=== PATIENT | male | born 1975 | race Hispanic/Latino ===

== ENCOUNTER 2022-07-24 08:11 | Emergency (ER) | payer SELFPAY ==
[2022-07-24] MEDS ORDERED: Ketorolac Tromethamine 30 MG/ML VIAL ONE (08:30)
== END 2022-07-24 08:57 | disposition home or self-care (01) ==
LOC: ERS 08:11
DX: M79.672 Pain in left foot (principal)
CPT/HCPCS: 96372; 99282; J1885

== ENCOUNTER 2023-10-19 11:09 | Emergency (ER) | payer SELFPAY | END 2023-10-19 11:35 | disposition home or self-care (01) | LOC: ERS 11:09 | DX: S41.111D Laceration without foreign body of right upper arm, subsequent encounter (principal); X58.XXXD Exposure to other specified factors, subsequent encounter ==

== ENCOUNTER 2025-01-21 13:38 | Emergency (ER) | payer SELFPAY ==
[2025-01-21] MEDS ORDERED: Ketorolac Tromethamine 30 MG (1 mL) VIAL ONE (14:43)
== END 2025-01-21 15:54 | disposition home or self-care (01) ==
LOC: ERS 13:38
DX: M77.12 Lateral epicondylitis, left elbow (principal); I10 Essential (primary) hypertension
CPT/HCPCS: 96372; 99283; J1885